=== PATIENT | female | born 1995 | race Caucasian/White ===

== ENCOUNTER 2019-10-19 13:57 | Emergency (ER) | payer MEDICAID ==
[2019-10-19 15:23] LABS: Bilirubin Negative (Negative); Blood, Urine 2+ (Negative); Clarity Clear (Clear); Glucose, Urine (Dipstick) Normal (Negative); Leukocyte Negative Leu/uL (Negative); Nitrite Negative (Negative); Protein, Urine (Dipstick) Negative (Neg-Trace); RBC/HPF 21-50 HPF (0-3); Squamous Epithelial None Seen HPF (0-3); Urobilinogen Normal mg/dL (Less than 2); WBC/HPF 0-3 HPF (0-3)
[2019-10-19 15:24] LABS: Bacteria/HPF 1+ HPF (None Seen)
--- NOTE | 2019-10-19 16:19 | ULT ---
PELVIC ULTRASOUND: 10/19/19 Transabdominal and endovaginal ultrasound of the pelvis performed. INDICATIONS: Vaginal bleeding. . FINDINGS: A gestational sac is seen in the endometrial cavity. No evidence of yolk sac. No evidence of po le. A hypoechoic area adjacent to this apparent gestational sac suggests a subchorionic hemorrhage. There is a left ovarian cyst measuring 1.5 to 2.0 cm, possible corpus luteum. The right ovary is unre markable. Both ovaries demonstrate blood flow with color Doppler and spectral analysis. IMPRESSION: Mildly prominent endometrium. There is evidence of a gestational sac in endometrial cavity. The gesta tional sac size would suggest a six week, 2 day gestational age; however, no pole or yolk sac i s identified possibly representing a blighted ovum. There is evidence of subchorionic hemorrhage. Sug gest continued close follow-up with serial HCG levels. POS: OFF
== END 2019-10-19 17:45 | disposition home or self-care (01) ==
LOC: ERS 13:57
DX: O20.0 Threatened abortion (principal); Z3A.01 Less than 8 weeks gestation of pregnancy
CPT/HCPCS: 36415; 76856; 81003; 81015; 84702; 90384; 96372

== ENCOUNTER 2020-04-23 22:48 | Emergency (ER) | payer MEDICAID, OTHER ==
[2020-04-23 23:33] LABS: Pregnancy Test - Urine (BHCG) POSITIVE (Negative); Pregu Control Background? CLEAR/WHITE (CLR/WHITE); Pregu Control Bar Appear? YES (CONTROL BAR)
[2020-04-23 23:34] LABS: #Basophils 0.1 thou/uL (0.0-0.2); #Eosinphils 0.1 thou/uL (0.0-0.7); #Lymphocytes 2.9 thou/uL (1.20-3.40); %Basophils 0.4 % (0.0-1.0); %Eosinophils 0.9 % (0.0-10.0); %Lymphocytes 17.9 % (21.0-51.0); %Neutrophils 74.9 % (42.0-75.0); Hemoglobin 12.6 g/dL (12.0-16.0); Mean Corpuscular HGB CONC 33.4 g/dL (32.0-36.0); Mean Corpuscular Hemoglobin 29.7 pg (27.0-31.0); Mean Corpuscular Volume 88.9 fL (78.0-98.0); Mean Platelet Volume 8.7 fL (7.4-10.4); Platelet Count 241 thou/uL (130-400); RBC Distribution Width 12.6 % (11.5-14.5); Red Blood Cell (RBC) Count 4.24 mill/uL (4.20-5.40)
[2020-04-23 23:41] LABS: Bilirubin Negative (Negative); Blood, Urine 2+ (Negative); Clarity Turbid (Clear); Glucose, Urine (Dipstick) Normal (Negative); Leukocyte Negative Leu/uL (Negative); Nitrite Negative (Negative); Protein, Urine (Dipstick) Negative (Neg-Trace); Squamous Epithelial 0-3 HPF (0-3); Urobilinogen Normal mg/dL (Less than 2); WBC/HPF 0-3 HPF (0-3)
[2020-04-23 23:44] LABS: Bacteria/HPF 1+ HPF (None Seen); Specific Gravity 1.013 (1.002-1.036)
[2020-04-23 23:49] LABS: BHCG - Serum POSITIVE (NEGATIVE); Pregs Control Background? CLEAR/WHITE (CLR/WHITE); Pregs Control Bar Appear? YES (CONTROL BAR)
[2020-04-23 23:57] LABS: ALT (SGPT) 18 U/L (8-55); AST (SGOT) 19 U/L (5-34); Alkaline Phosphatase 91 U/L (40-110); Anion Gap 9 mmol/L (10-20); BUN (Urea Nitrogen) 11 mg/dL (7.0-18.7); Bilirubin, Total 0.3 mg/dL (0.2-1.2); Calc. Creatinine Clearance 0 mL/min (70-130); Calcium 9.1 mg/dL (7.8-10.44); Carbon Dioxide 28 mmol/L (22-29); Chloride 103 mmol/L (98-107); Estimated GFR-MDRD Greater than 90; Glucose 95 mg/dL (70-105); Potassium 3.4 mmol/L (3.5-5.1); Sodium 137 mmol/L (136-145)
--- NOTE | 2020-04-24 08:55 | ULT ---
PRELIMINARY REPORT/[facility]/EMERGENCY AFTER HOURS PROCEDURE EXAM: US Obstetrical, Complete <14 weeks CLINICAL HISTORY: Pelvic cramping pain, vaginal bleeding TECHNIQUE: Transvaginal and transabdominal imaging of the maternal pelvis and a <14 week gestation with image do cumentation. COMPARISON: None provided. FINDINGS: GESTATION: A CRL of 0.5 cm corresponds to 9 weeks 2 days with a heartbeat of 163 bpm. A 2.6 x 1.2 x 2.4 c m yisel-gestational hemorrhage is noted UTERUS: Unremarkable. No myometrial mass. Measures 8.3 x 5.4 x 6.2 cm CERVIX: Closed. Unremarkable. OVARIES: No mass. The RIGHT side measures 2.3 x 1.6 cm and the LEFT side measures 4.0 x 2.1 x 2.2 cm demonst rating a 1.8 x 1.1 x 1.4 cm complex cyst FREE FLUID: No free fluid. IMPRESSION: Single viable intrauterine . Yisel-gestational hemorrhage. ELECTRONICALLY SIGNED BY: Emir Mckenzie MD Apr 24, 2020 1:03:21 AM CDT This report is intended for review by the ordering physician only, in accordance of law. If you recei ve this report in error, please call [facility] at [phone]. FINAL REPORT PELVIC ULTRASOUND: FINDINGS: Viable intrauterine is noted on preliminary report. There is evidence of a subchorionic he morrhage. I am in agreement with the preliminary report. POS: AGW
== END 2020-04-24 01:50 | disposition home or self-care (01) ==
LOC: ERS 22:48
DX: O20.8 Other hemorrhage in early pregnancy (principal); O23.41 Unspecified infection of urinary tract in pregnancy, first trimester; Z3A.01 Less than 8 weeks gestation of pregnancy
CPT/HCPCS: 36415; 76856; 80053; 81003; 81015; 81025; 84702; 84703; 85025; 86900; 86901

== ENCOUNTER 2020-09-01 13:07 | Day surgery (SDC) | payer OTHER ==
[2020-09-01 13:49] VITALS: BMI 29.7
[2020-09-01] MEDS ORDERED: hydrALAZINE 20 MG/ML VIAL SLOW IVP PRN (14:35)
--- NOTE | 2020-09-01 16:35 | ULT ---
EXAM: OB ultrasound Limited COMPARISON: None HISTORY: 26 week intrauterine gestation. Patient complaining of pelvic pressure and spotting. TECHNIQUE: Multiplanar grayscale and color Doppler transabdominal sonographic images are obtained. FINDINGS: There is a single intrauterine gestation in breech presentation. Cardiac Doppler demonstrat es heart tones with a heart rate of 136 beats per minute. The placenta is located posteriorly and is low lying with the leading edge of the placenta approximately 1 cm proximal to the internal cervical os. No retroplacental hemorrhage is seen. There is a normal amount of amniotic fluid with an amniotic fluid index of 16.9 centimeters. The cervical length based on transabdominal i maging measures 4.5 centimeters. biometry measurements: BPD 6.77 cm -- 27 weeks 2 days HC 24.91 cm -- 27 weeks AC 21.46 cm -- 26 weeks FL 4.79 cm -- 26 week The estimated gestational age by ultrasound is 26 weeks 4 days with an MANDA on12/04/2020. Gestational a ge by the last menstrual period is 26 weeks. The estimated weight by ultrasound is 900 g (2 pounds). This represents 45 percentile for weight. This examination was not performed for evaluation of the anatomical structures. Adnexal structures were not imaged. IMPRESSION: 1. Low-lying placenta with the leading edge of the placenta approximately 1 cm from the internal cerv ical os. 2. Single intrauterine gestation in breech presentation with heart tones documented. Estimated gestational age by ultrasound is 26 weeks 4 days with MANDA on 12/04/2020. 3. Estimated weight is 900 g (2 pounds). 4. Amniotic fluid index is 16.9 centimeters.
--- NOTE | 2020-09-02 05:02 | SS ---
DATE OF ADMISSION: 09/01/2020 DATE OF DISCHARGE: 09/01/2020 Labor and Delivery Triage Note. REGULAR PHYSICIAN: Jam Hester MD EVALUATING PHYSICIAN: Nicholas Gama MD. CHIEF COMPLAINT: Pelvic pressure. HISTORY OF PRESENT ILLNESS: Ms. Harris is a 24-year-old white G2, P0, AB1 with an estimated date of confinement of 12/08/2020, who presents complaining of pelvic discomfort and pelvic pressure over the last 3 days. She denies change in bowel or bladder habits. She denies ruptured membranes, but does report occasional white spotting. She reports having had intercourse 48 hours ago. Her care has been with Dr. Hester and has been complicated by 1st trimester bleeding. PAST OBSTETRICAL HISTORY: Includes one blighted ovum, which was treated with D and C. PAST MEDICAL HISTORY: None. PAST SURGICAL HISTORY: D and C as above. CURRENT MEDICATIONS: vitamins. ALLERGIES: NO KNOWN ALLERGIES. SOCIAL HISTORY: Denies tobacco, alcohol, or drug use. FAMILY HISTORY: Unremarkable. REVIEW OF SYSTEMS: Denies nausea, vomiting, fever, chills, ruptured membranes, or urinary symptoms. PHYSICAL EXAMINATION: VITAL SIGNS: Blood pressure is 112/61, pulse is 82. GENERAL: She is pleasant, and in no acute distress. ABDOMEN: Soft, nontender, and gravid. There is no guarding or rebound. heart rate tracing is stable. No decelerations are seen. No uterine contractions are noted. Ultrasound shows a breech coe weight approximately 2 pounds. ELIAS 16.9 with a posterior placenta without previa. A cervical length of 4.5 cm is noted. ASSESSMENT: 1. 26-week intrauterine . 2. No evidence of labor. PLAN: The patient was given labor precautions, and told to rest at home over the next 24 hours. She voiced understanding of her discharge instructions, and will follow up with Dr. Hester next week. Job ID: [id number]
[2020-09-02] MEDS ORDERED: FLU VACC QS2020-21(6MOS UP)/PF 60 MCG/0.5 ML SYRINGE IM ONE (09:00)
== END 2020-09-01 16:00 | disposition home or self-care (01) ==
LOC: L&D/OP 13:07
PROVIDERS: ATTEND Obstetrics & Gynecology
DX: O99.891 Other specified diseases and conditions complicating pregnancy (principal); R10.2 Pelvic and perineal pain; O26.852 Spotting complicating pregnancy, second trimester; O09.292 Supervision of pregnancy with other poor reproductive or obstetric history, second trimester; Z3A.26 26 weeks gestation of pregnancy
CPT/HCPCS: 76815; 99282

== ENCOUNTER 2020-09-26 17:01 | Day surgery (SDC) | payer OTHER ==
[2020-09-26 17:56] LABS: Amnisure Internal Control QC ACCEPTABLE (ACCEPTABLE); Amnisure Test No Membranes Rupture (No Rupture)
[2020-09-26 18:00] VITALS: BP 119/72; TEMP 98.1; BMI 30.2
[2020-09-26] MEDS ORDERED: hydrALAZINE 20 MG/ML VIAL SLOW IVP PRN (18:10)
--- NOTE | 2020-09-26 18:11 | PDOC.LDHP ---
Labor and Delivery H&P Chief complaint: loss of fluid HPI: Patient is a 25 yo female at 29.4 wga who presents with complaint of loss of fluid that occurred approximately 2 hours ago. She states she was walking at work and felt sudden lower abdominal pressure, then a "pop" then felt a lot of fluid in her underwear. She was wearing a panty-liner and says that it was soaked and so was her underwear. Denies any vaginal bleeding or discharge. Denies dysuria, burning, itching, abdominal pain, back pain, fever/chills, nausea, vomiting. Is still feeling baby move. Patient is followed by Dr. Hester, last appt with him was on 09/23/2020. Had ultrasound at that time and was told everything looked normal and baby was head down. She had a "blood clot" outside her gestational sac early in but this has since resolved. she did fail her 1 hour glucose tolerance test and is supposed to have her 3 hr gtt completed next week. Current gestational age (weeks): 29 (29.4) Due date: 12/10/20 Grav: 2 Para: 0 OB History Details: 1st miscarriage at 8 wga, required D&C--performed in 2019 Current complications: none Past Medical History: no major issues Current medications: pre- vitamins Previous surgical history: dilation and curettage (2019) Allergies/Adverse Reactions: Allergies Allergy/AdvReac Type Severity Reaction Status Date / Time No Known Allergies Allergy Verified 09/26/20 17:47 Social history: none - Physical Exam Vital signs reviewed and normal: yes General: resting Lungs: nonlabored breathing Abdomen: gravid Extremeties: no edema FHT: category 1 (FHR 140s) [place] contractions every: none seen - Vaginal Exam cm dilated: 0 (sterile spec exam with closed cervix & no pooling of fluid) - OB Labs Blood type: unknown RH: unknown Antibody Screen: unknown 1 hour GCT: positive (patient reports she "failed", number unknown) GBS: unknown - Plan -: Patient is a 25 yo female at 29.4 wga who presents with presumed LOF Third Trimester , Rule Out PPROM -sterile speculum exam with no signs of pooling of fluid, cervix closed -Amnisure negative Dispo: Stable. Ruled out rupture of membranes. Instructed patient to keep follow up as scheduled with Dr. Hester. Discharged to home in stable condition.
--- NOTE | 2020-09-26 18:26 | HP ---
TIME OF EVALUATION: Roughly 1800 hours. 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 In brief, I have seen this patient at bedside and I have reviewed with her diagnostic testing and the patient agrees with plan of care. This patient of Dr. Hester. The patient was first evaluated by Dr. Valentine Jones, who is our resident on- call. CHIEF COMPLAINT: Possible leakage of fluid earlier this afternoon. HISTORY OF PRESENT ILLNESS: This is a 25-year-old, G2, P0, with a previous 1st trimester miscarriage with D and C, who has a due date now around 12/10, putting her at 29 weeks and 4 days. She states that she was at work and had some leakage of fluid, but denied vaginal bleeding or contractions, and she has no contractions or pain now. She has good movement. She denies recent trauma or other issues. She does have a history of not passing her one-hour glucose tolerance test and her three-hour is still pending. PAST HISTORY: As otherwise stated by Dr. Jones's H and P. PHYSICAL EXAMINATION: VITAL SIGNS: Stable and she is afebrile. ASSESSMENT AND PLAN: I have evaluated the patient at bedside and I find her stable for discharge. Before making this plan of discharge, she did have a sterile speculum examination by Dr. Jones, which was completely normal and did not suspect ruptured membranes. We also performed an AmniSure examination and AmniSure is negative. I discussed with the patient that having 2 tests (sterile speculum exam and AmniSure), both negative, makes it very unlikely that she is ruptured at this time. I did recommend that she follow up with her provider for routine care. DIAGNOSES: 1. A 29-week . 2. heart tones present and variability noted on tracing. 3. Sterile speculum examination negative. 4. AmniSure negative. Job ID: [id number] MTDD
[2020-09-27] MEDS ORDERED: FLU VACC QS2020-21(6MOS UP)/PF 60 MCG/0.5 ML SYRINGE IM ONE (09:00)
== END 2020-09-26 18:25 | disposition home or self-care (01) ==
LOC: L&D/OP 17:01
PROVIDERS: ATTEND Obstetrics & Gynecology
DX: O99.891 Other specified diseases and conditions complicating pregnancy (principal); N89.8 Other specified noninflammatory disorders of vagina; Z3A.29 29 weeks gestation of pregnancy
CPT/HCPCS: 84112; 99284

== ENCOUNTER 2020-11-10 17:50 | Day surgery (SDC) | payer OTHER ==
[2020-11-10 18:36] VITALS: BP 128/68; TEMP 98.7; BMI 32.5
[2020-11-10] MEDS ORDERED: hydrALAZINE 20 MG/ML VIAL SLOW IVP PRN (18:50)
[2020-11-10 19:50] LABS: Bacteria/HPF None Seen HPF (None Seen); Bilirubin Negative (Negative); Blood, Urine Negative (Negative); Clarity Clear (Clear); Glucose, Urine (Dipstick) Normal (Negative); Ketone, Urine Negative (Negative); Leukocyte Negative Leu/uL (Negative); Nitrite Negative (Negative); Protein, Urine (Dipstick) Negative (Neg-Trace); RBC/HPF 0-3 HPF (0-3); Squamous Epithelial 0-3 HPF (0-3); Urobilinogen Normal mg/dL (Less than 2); WBC/HPF 0-3 HPF (0-3)
--- NOTE | 2020-11-11 10:11 | SS ---
DATE OF ADMISSION: 11/10/2020 DATE OF DISCHARGE: 11/10/2020 REGULAR PHYSICIAN: Jam Hester MD EVALUATING PHYSICIAN: Nicholas Gama MD CHIEF COMPLAINT: Back pain. HISTORY OF PRESENT ILLNESS: Ms. Harris is a 25-year-old white G2, P0, AB1 with an estimated date of confinement of 12/08/2020, who presents complaining of back pain at work. She is uncertain whether she thinks these are contractions or not. She denies associated ruptured membranes or vaginal bleeding. She states she was sent here from work for evaluation of these complaints. Her care has been with Dr. Hester without complications. PAST MEDICAL HISTORY: None. PAST SURGICAL HISTORY: D and C for blighted ovum. CURRENT MEDICATIONS: 1. vitamins. 2. Nexium p.r.n. ALLERGIES: NO KNOWN ALLERGIES. SOCIAL HISTORY: Denies tobacco, alcohol, or drug use. FAMILY HISTORY: Unremarkable. REVIEW OF SYSTEMS: Denies nausea, vomiting, fever, chills, ruptured membranes, vaginal bleeding. PHYSICAL EXAMINATION: VITAL SIGNS: In triage, her vital signs are stable. She is afebrile. GENERAL: She is pleasant, in no distress. ABDOMEN: Soft, nontender, and gravid. heart rate tracing is reassuring with spontaneous accelerations. No decelerations are seen. No sustained uterine contractions are noted. PELVIC: Initially is 1 cm dilated, 50% effaced with the vertex -2 and posterior. The patient is hydrated and her exam is repeated over an hour later and there is no cervical change seen. LAB: UA negative. ASSESSMENT: 1. A 36 and 0/7th-week intrauterine . 2. Back pain. 3. No evidence of active labor at this time. PLAN: The patient will be dismissed home with labor precautions. Her labor precautions were reviewed and she will follow up for her next scheduled appointment with Dr. Hester. Job ID: [id number] [facility]
== END 2020-11-10 20:14 | disposition home health service (06) ==
LOC: L&D/OP 17:50
PROVIDERS: ATTEND Obstetrics & Gynecology
DX: O99.891 Other specified diseases and conditions complicating pregnancy (principal); M54.9 Dorsalgia, unspecified; O09.293 Supervision of pregnancy with other poor reproductive or obstetric history, third trimester; Z3A.36 36 weeks gestation of pregnancy
CPT/HCPCS: 81003; 99283

== ENCOUNTER 2020-11-26 13:54 | Day surgery (SDC) | payer OTHER ==
[2020-11-26 14:31] VITALS: BMI 32.2
[2020-11-26] MEDS ORDERED: hydrALAZINE 20 MG/ML VIAL SLOW IVP PRN (14:42)
--- NOTE | 2020-11-26 15:08 | PDOC.BPN ---
- Brief Progress Note H&P notes: Patient was seen earlier at Dr Hester's office. Her performed vag exam and called her .5cm. Sent for ROM check here. FHTs there were 140s by patient account. Here around 110-120s with accels to 130s. Pulse ox noted different maternal pulse. Sterile Spec Exam by me: No gross evidence ROM. SSE with no pooling. Valsalva negative. Thick white curd like vag dsch abundant in vagina. Suspect vag candidiasis not ROM pending I discussed these findings with her. Diflucan ordered at 150mg po X1.
[2020-11-26 15:10] LABS: Amnisure Test No Membranes Rupture (No Rupture)
[2020-11-26 15:11] LABS: Amnisure Internal Control QC ACCEPTABLE (ACCEPTABLE)
[2020-11-26] MEDS ORDERED: Fluconazole 100 MG TAB PO SCH (15:15)
--- NOTE | 2020-11-26 15:17 | PDOC.BPN ---
- Brief Progress Note is negative
--- NOTE | 2020-11-26 15:28 | HP ---
TIME OF EVALUATION: Roughly is 1430, now 1446. LOCATION: Triage B. Patient of Dr. Hester. CHIEF COMPLAINT: Possible leakage of fluid this morning. HISTORY OF PRESENT ILLNESS: This is a 25-year-old G2, P0 with possible leakage of fluid throughout the night. She says that she woke up this morning with "wet thighs" and a small wet spot on the bed, but she declines any large gush of fluid. She has good movement and denies any vaginal bleeding. Patient sent by Dr Hester who saw her earlier today in clinic. He examined her there and called her "1/2 cm". FHTs there by her account were 130-140s. She has no headache, visual changes or other complications. She is 30 weeks and 2 days. Her EDC is December 08. She has a history of blighted ovum (miscarriage) in the past. REVIEW OF SYSTEMS: GENERAL: No sick contacts. No fevers. No chills. PULMONARY: No shortness of breath. CARDIOVASCULAR: No chest pain. LOWER EXTREMITIES: No unusual swelling or pain. PAST MEDICAL HISTORY: Significant only for gastroesophageal reflux disease. ALLERGIES: NONE. PAST SURGICAL HISTORY: None. PAST OBSTETRICAL HISTORY: Significant for blighted ovum. SOCIAL HISTORY: Negative for alcohol, tobacco and drug use. CURRENT MEDICATIONS: Include her vitamins only. PHYSICAL EXAMINATION: VITAL SIGNS: Blood pressure is 115/73, pulse is 109, O2 sat is 100%, respirations 18, temperature is 98.4. GENERAL: She is in no acute distress. ABDOMEN: Soft, nontender. Appears size compatible with dates. PELVIC: Currently deferred as I am about to do a sterile speculum exam. EXTERNAL MONITOR: monitor has been reviewed by me. The heart tracing has somewhat of a low baseline of around 110 to 120, but it does look like there is moderate variability. We do have the pulse ox on at the same time, which shows that it is distinct from the maternal pulse. INTERVENTIONS ORDERED: I have ordered a sterile speculum exam, which I am about to do and an AmniSure. ASSESSMENT: A 25-year-old G2, P0 at 38 weeks and 2 days, with GBS positive with possible premature rupture of membranes. PLAN: 1. Continue monitoring for the low baseline. Although it is low baseline, I do not see any pathological decelerations. 2. Sterile spec examination. 3. Await AmniSure. Job ID: [id number] MTDD
--- NOTE | 2020-11-26 16:02 | PRG ---
DATE OF SERVICE: This is a quick note for the medical scientific officer on patient Sherri Harris, whose J# is [id number]. I may have punched in my physician ID incorrectly, I cannot remember, but this is to confirm that the patient Sherri Harris, J# [id number] goes to me, Melecio Velazquez, I just dictated her history and physical, because I am not sure if I put in my physician ID correctly. Again, Sherri Harris's history and physical dictated by me should go under my physician ID code which is [id number]. Job ID: [id number]
== END 2020-11-26 15:48 | disposition home health service (06) ==
LOC: L&D/OP 13:54
PROVIDERS: ATTEND Obstetrics & Gynecology
DX: O99.891 Other specified diseases and conditions complicating pregnancy (principal); N89.8 Other specified noninflammatory disorders of vagina; O99.613 Diseases of the digestive system complicating pregnancy, third trimester; K21.9 Gastro-esophageal reflux disease without esophagitis; O99.820 Streptococcus B carrier state complicating pregnancy; Z3A.38 38 weeks gestation of pregnancy; Z79.899 Other long term (current) drug therapy
CPT/HCPCS: 84112

== ENCOUNTER 2020-11-27 08:16 | Outpatient (CLI) | payer OTHER ==
[2020-11-27 21:23] LABS: SARS-CoV-2 MS2 Positive; SARS-CoV-2 N Gene Negative; SARS-CoV-2 S Gene Negative; SARS-CoV-2 by NAA Not Detected (NotDetected); SARS-CoV-2 orf1ab Negative
== END 2020-11-27 08:17 | disposition home or self-care (01) ==
LOC: LABBT 08:16
PROVIDERS: ATTEND Obstetrics & Gynecology
DX: Z01.812 Encounter for preprocedural laboratory examination (principal); Z20.822 Contact with and (suspected) exposure to COVID-19
CPT/HCPCS: 87635; U0003

== ENCOUNTER 2020-12-01 18:55 | Inpatient (IN) | payer OTHER, SELFPAY ==
[~2020-12-01 18:55] MED LIST: Bupivacaine HCl 0.25%/Epi 0.0005/PF 10 ML VIAL FS ONE; Lidocaine 2% PF 5 ML VIAL ONE; ePHEDrine 50 MG/ML VIAL ONE
[2020-12-01] MEDS ORDERED: Acetaminophen 500 MG TAB PO PRN (19:00)
[2020-12-01] MEDS ORDERED: HYDROcodone/Acetaminophen 5/325 mg Tablet PO PRN ×2 (19:00)
[2020-12-01] MEDS ORDERED: Lidocaine 1% (PF) 30 ML VIAL SC PRN (19:00)
[2020-12-01] MEDS ORDERED: hydrALAZINE 20 MG/ML VIAL SLOW IVP PRN (19:00)
[2020-12-01] MEDS ORDERED: Penicillin G Potassium 5 MILL.UNITS in Sodium Chloride 0.9% 100 ML IVPB SCH (19:00)
[2020-12-01] MEDS ORDERED: Ondansetron PF 4 MG/2 ML Vial IVP PRN (19:00)
[2020-12-01] MEDS ORDERED: Misoprostol 200 MCG TAB PR PRN (19:00)
[2020-12-01] MEDS ORDERED: NS / Oxytocin 40 units/1000ml 1,000 ML IV PRN (19:00)
[2020-12-01] MEDS ORDERED: Carboprost 250 MCG/ML AMP IM PRN (19:00)
[2020-12-01] MEDS ORDERED: Promethazine HCl 25 MG/ML VIAL IM PRN (19:00)
[2020-12-01] MEDS ORDERED: Methylergonovine 0.2 MG/ML VIAL IM PRN (19:00)
[2020-12-01] MEDS ORDERED: Zolpidem Tartrate 5 MG TAB PO PRN (19:00)
[2020-12-01] MEDS ORDERED: Diphenoxylate HCl/Atropine Tablet PO PRN ×2 (19:00)
[2020-12-01] MEDS ORDERED: Ibuprofen 800 MG TAB PO PRN (19:00)
--- NOTE | 2020-12-01 19:11 | PDOC.LDHP ---
Labor and Delivery H&P HPI: 25 y/o at 39 weeks presents for elective induction of labor. GBS Positive. Current gestational age (weeks): 39 Due date: 12/08/20 Grav: 2 Para: 0 Current complications: none Abnormal US findings: No Current medications: pre- vitamins Allergies/Adverse Reactions: Allergies Allergy/AdvReac Type Severity Reaction Status Date / Time No Known Allergies Allergy Verified 11/26/20 14:24 Social history: none - Physical Exam Vital signs reviewed and normal: yes General: NAD, resting Heart: RRR Lungs: CTAB Abdomen: gravid Extremeties: no edema FHT: category 1 - Assessment L&D Assessment: elective induction at term - Plan Plan: admit to L&D, cervical ripening
[2020-12-01] MEDS ORDERED: NS w/ Oxytocin 30 units 500 ML IVPB SCH ×2 (19:15→19:17)
[2020-12-01 19:42] VITALS: BMI 32.2
[2020-12-01] MEDS: Lactated Ringer's 1,000 ML IV SCH (20:07)
[2020-12-01] MEDS: Misoprostol 100 MCG TAB VAG SCH (20:08)
[2020-12-01 20:18] LABS: Hemoglobin 10.6 g/dL (12.0-16.0); Mean Corpuscular Hemoglobin 26.5 pg (27.0-31.0); Mean Corpuscular Volume 80.2 fL (78.0-98.0); Mean Platelet Volume 9.5 fL (7.4-10.4); Platelet Count 275 thou/uL (130-400); RBC Distribution Width 15.8 % (11.5-14.5); White Blood Cell (WBC) Count 14.8 thou/uL (4.8-10.8)
[2020-12-01 20:59] LABS: Syphilis Antibody Nonreactive (Nonreactive); Syphilis Antibody Index 0.05 S/CO (<1.00 Non-Reactive)
[2020-12-01 22:39] LABS: HBSAg Index 0.37 S/CO (0-0.99); Hep B Surf Ag Non-Reactive S/CO (NonReactive)
[2020-12-01] MEDS: Penicillin G 2.5 MILL.units 2.5 MILL.UNITS in Premix Bag 1 BAG IVPB SCH ×2 (23:20→23:21)
[2020-12-02] MEDS: Misoprostol 100 MCG TAB VAG SCH ×2 (00:14→09:14)
[2020-12-02] MEDS: Butorphanol Tartrate 1 MG/ML VIAL SLOW IVP PRN ×2 (05:28→09:13)
[2020-12-02] MEDS ORDERED: Fentanyl 4 mcg/Bup 0.1% Cadd 100 ML ONE ×2 (10:56→17:56)
[2020-12-02] MEDS ORDERED: Acetaminophen 325 MG TAB PO PRN (11:28)
[2020-12-02] MEDS ORDERED: Naloxone HCl 0.4 mg/ml Vial IVP PRN ×4 (11:28→21:14)
[2020-12-02] MEDS ORDERED: ePHEDrine 50 MG/ML VIAL SLOW IVP PRN (11:28)
[2020-12-02] MEDS ORDERED: Promethazine HCl 25 MG/ML VIAL IM PRN ×3 (11:28→22:24)
[2020-12-02] MEDS ORDERED: Ondansetron PF 4 MG/2 ML Vial IVP PRN ×3 (11:28→22:24)
[2020-12-02] MEDS ORDERED: diphenhydrAMINE 50 MG/ML VIAL IVP PRN ×3 (11:28→22:24)
[2020-12-02] MEDS ORDERED: Lactated Ringer's 500 ML IV PRN (11:28)
[2020-12-02] MEDS ORDERED: Communication Order-Pharmacy FS PRN (11:30)
[2020-12-02] MEDS ORDERED: Fentanyl 4 mcg/Bupivacaine 0.1% Cassette 100 ML EPIDURAL SCH (11:30)
[2020-12-02] MEDS: Lactated Ringer's 1,000 ML IV SCH (14:40)
[2020-12-02] MEDS ORDERED: Terbutaline Sulfate 1 MG/ML VIAL ONE (14:58)
[2020-12-02] MEDS: Penicillin G 2.5 MILL.units 2.5 MILL.UNITS in Premix Bag 1 BAG IVPB SCH (18:08)
[2020-12-02] MEDS ORDERED: Azithromycin 500 MG VIAL ONE (20:11)
[2020-12-02] MEDS ORDERED: Lidocaine 2% 10 ML INJ ONE (20:36)
[2020-12-02] MEDS ORDERED: Oxytocin 10 UNITS/ML VIAL ONE (20:37)
[2020-12-02] MEDS ORDERED: Fentanyl 100 MCG/2 ML VIAL ONE ×3 (20:56→21:32)
[2020-12-02] MEDS ORDERED: Morphine PF 10 MG/10 ML VIAL ONE (20:57)
[2020-12-02] MEDS ORDERED: Ondansetron HCl/PF 4 MG/2 ML Vial IVP PRN (21:14)
[2020-12-02] MEDS ORDERED: Ketorolac Tromethamine 30 MG/ML VIAL IVP PRN (21:14)
[2020-12-02] MEDS ORDERED: Meperidine HCl/PF 25 MG/ML VIAL SLOW IVP PRN (21:14)
[2020-12-02] MEDS ORDERED: L&D-Morphine 4 MG/ML VIAL SLOW IVP PRN (21:14)
[2020-12-02] MEDS ORDERED: Promethazine HCl 25 MG SUPP PR PRN (21:14)
[2020-12-02] MEDS ORDERED: Naloxone HCl 0.4 mg/ml Vial IV PRN ×2 (21:14→22:24)
[2020-12-02] MEDS ORDERED: HYDROmorphone 2 MG/ML VIAL SLOW IVP PRN (21:14)
[2020-12-02] MEDS ORDERED: Communication Order-Pharmacy FS SCH ×2 (21:15→22:30)
[2020-12-02] MEDS ORDERED: Ketorolac Tromethamine 30 MG/ML VIAL IVP SCH (21:15)
[2020-12-02] MEDS ORDERED: Ketorolac Tromethamine 30 MG/ML VIAL ONE (21:16)
[2020-12-02] MEDS ORDERED: Ondansetron PF 4 MG/2 ML Vial ONE ×2 (21:16→23:02)
[2020-12-02] MEDS ORDERED: Dexamethasone 4 mg/ml Vial ONE (21:16)
[2020-12-02] MEDS ORDERED: Ketamine 50 MG/ML (10ML VIAL) ONE (21:41)
[2020-12-02] MEDS ORDERED: HYDROmorphone 10 mg/100 ml CADD IVPB PRN (22:24)
[2020-12-02] MEDS ORDERED: diphenhydrAMINE 50 MG/ML VIAL IM PRN (22:24)
[2020-12-02] MEDS ORDERED: Zolpidem Tartrate 5 MG TAB PO PRN (22:24)
[2020-12-02] MEDS ORDERED: diphenhydrAMINE 25 MG CAP PO PRN (22:24)
[2020-12-03] MEDS ORDERED: Bisacodyl 10 MG SUPP PR PRN (00:01)
[2020-12-03] MEDS ORDERED: Zolpidem Tartrate 5 MG TAB PO PRN (00:01)
[2020-12-03] MEDS ORDERED: hydrALAZINE 20 MG/ML VIAL SLOW IVP PRN (00:01)
[2020-12-03] MEDS ORDERED: Methylergonovine 0.2 MG/ML VIAL IM PRN (00:01)
[2020-12-03] MEDS ORDERED: Ondansetron PF 4 MG/2 ML Vial IVP PRN (00:01)
[2020-12-03] MEDS ORDERED: NS / Oxytocin 40 units/1000ml 1,000 ML IV SCH (00:01)
[2020-12-03] MEDS ORDERED: Misoprostol 200 MCG TAB PR PRN (00:01)
[2020-12-03] MEDS ORDERED: Lanolin Ointment 7 GM TUBE TOP PRN (00:01)
[2020-12-03] MEDS ORDERED: diphenhydrAMINE 25 MG CAP PO PRN (00:01)
[2020-12-03] MEDS ORDERED: Promethazine HCl 25 MG/ML VIAL IM PRN (00:01)
[2020-12-03] MEDS ORDERED: NS w/ Oxytocin 30 units 500 ML IV SCH (00:15)
[2020-12-03] MEDS: Misoprostol 100 MCG TAB VAG SCH ×3 (01:37→01:39)
[2020-12-03] MEDS: Lactated Ringer's 1,000 ML IV SCH (01:37)
[2020-12-03] MEDS: Penicillin G 2.5 MILL.units 2.5 MILL.UNITS in Premix Bag 1 BAG IVPB SCH ×2 (01:40→01:41)
[2020-12-03 07:06] LABS: Hemoglobin 8.5 g/dL (12.0-16.0); Mean Corpuscular HGB CONC 32.9 g/dL (32.0-36.0); Mean Corpuscular Hemoglobin 26.7 pg (27.0-31.0); Mean Corpuscular Volume 81.3 fL (78.0-98.0); Mean Platelet Volume 9.4 fL (7.4-10.4); Platelet Count 231 thou/uL (130-400); RBC Distribution Width 15.9 % (11.5-14.5); Red Blood Cell (RBC) Count 3.18 mill/uL (4.20-5.40); White Blood Cell (WBC) Count 24.6 thou/uL (4.8-10.8)
[2020-12-03] MEDS: Prenatal Vitamin 1 TAB PO SCH (08:59)
[2020-12-03] MEDS: Docusate Calcium (SURFAK) 240 MG CAP PO SCH ×2 (08:59→20:23)
[2020-12-03] MEDS ORDERED: Adacel (T-DAP) 0.5 ML SYRINGE IM ONE (09:00)
[2020-12-03] MEDS ORDERED: Measles/Mumps/Rubella 10 MCG/0.5 ML VIAL SC ONE (09:00)
[2020-12-03] MEDS ORDERED: Varicella virus, LIVE 0.5 ML VIAL SC ONE (09:00)
[2020-12-03] MEDS: HYDROcodone/Acetaminophen 5/325 mg Tablet PO PRN ×2 (14:26→19:23)
[2020-12-03] MEDS: Simethicone Chewable 80 MG TAB PO PRN (14:27)
--- NOTE | 2020-12-03 18:33 | PDOC.PP ---
Post Progress Note Post Day #: 1 PO intake tolerated: yes Flatus: yes Ambulation: yes Vital Signs (12 hours) Temp Pulse Resp BP Pulse Ox 12/03/20 17:12 98.8 F 107 H 12 110/56 L 97 12/03/20 11:44 98.7 F 96 20 108/54 L 12/03/20 08:18 99.0 F 96 20 112/54 L 97 Weight Weight 188 lb - Physical Examination General: NAD Cardiovascular: no m/r/g, RRR Respiratory: clear to auscultation bilaterally, non-labored breathing Abdominal: + bowel sounds, lochia, no distention Extremities: negative homans (B) Skin: CS incision dry & intact, no rash Neurological: no gross focal deficits Psychiatric: A&Ox3, normal affect Result Diagrams: 12/03/20 06:37 Additional Labs: Post Labs Hep Bs Antigen Non-Reactive S/CO (NonReactive) 12/01/20 19:58 Blood Type O POSITIVE 12/01/20 19:58
--- NOTE | 2020-12-03 18:59 | OP ---
DATE OF PROCEDURE: 12/02/2020 TIME OF SERVICE: At 2104 Central Standard Time. PREOPERATIVE DIAGNOSES: Intrauterine at 39 weeks and 1 day with induction of labor and then non-reassuring heart tones. POSTOPERATIVE DIAGNOSES: Intrauterine at 39 weeks and 1 day with induction of labor and then non-reassuring heart tones. PROCEDURE PERFORMED: Primary low transverse section. FINDINGS: Viable male weighing 3216 g or 7 pounds 1 ounce, Apgars 7 and 9. QUANTITATIVE BLOOD LOSS: 915 mL. COMPLICATIONS: None. DETAILS OF THE PROCEDURE: The patient was consented and taken back to the operating room where spinal anesthesia was found to be adequate. She was then prepped and draped in the normal sterile fashion. A timeout was performed by the entire operative team. The incision was then marked with a marking pen tested using sharp pickups. An incision was then made with a scalpel. The incision was carried through the adipose tissue down to the underlying rectus fascia using both sharp dissection as well as cautery. Once the fascia was identified, it was incised in the midline and then the fascial incision was carried through in both lateral directions using sharp as well as cautery dissection techniques. Next, the superior aspect of the rectus fascia was grasped with 2 Milly clamps, which was tented up and the rectus muscles were dissected off using blunt dissection as well as cautery dissection. Similarly, the inferior aspect of the fascial incision was grasped with 2 Milly clamps, tented up and the rectus muscles were dissected off bluntly as well as sharply. Next, the rectus muscles were in the midline and the peritoneum identified. The peritoneum was then carefully grasped with 2 hemostats and entered sharply. The peritoneal incision was extended superiorly and inferiorly and bladder blade was placed in the lower abdomen. At this point, the uterus was identified and the bladder flap was then developed using pickups with teeth as well as Metzenbaum scissors in both lateral directions. The bladder flap was then dissected downwards using the sanding line operator's finger as well as Metzenbaum scissors. The bladder blade was replaced. The lower uterine segment was then identified and entered sharply using a clean scalpel. The uterine incision was then dissected downwards until thin layer of muscle remained and this was entered bluntly using a hemostat to avoid any injury to the baby. The uterine incision was then stretched using two fingers in both lateral directions. An amniotomy was performed artificially using a hemostat and the baby was delivered using fundal pressure in a gentle fashion. Once out, the baby's mouth and nose were bulb suctioned, cord clamped and cut, and the baby was handed to waiting attendants. Next, the uterus was exteriorized, cleared of all clots and debris and the uterine incision was repaired with #1 Monocryl in a running locking fashion. A 2nd suture of the same type was used to obtain complete hemostasis at the uterine incision. The bladder flap was reapproximated using 3-0 Monocryl. Next, patient's left and right adnexa were inspected and appeared to be within normal limits. The posterior cul-de-sac was blotted dry and hemostasis assured. One more look at the uterine incision demonstrated hemostasis. Next, the uterus was replaced back within the abdomen. The peritoneum was reapproximated using 2-0 Monocryl without difficulty. The rectus muscles were then allowed to come back together and 0 chromic was used to aid in reapproximation of the muscle as necessary. The rectus fascia was then reapproximated in a running fashion using 0 Vicryl suture. The adipose tissue was then examined and appeared to be well approximated without any obvious separations. Finally, the skin was reapproximated with 3-0 Monocryl on a Osiel needle without difficulty and Dermabond adhesive was applied to the skin. Once the glue was dry, the drapes were removed and the patient was transferred to an ambulatory bed where she was taken to recovery awake and in stable condition. Sponge, lap, and needle counts were correct x3. Job ID: [id number]
[2020-12-03] MEDS ORDERED: Sodium Chloride 0.9% 10 ML ONE (20:17)
[2020-12-03] MEDS: CEFAZOLIN 2 GM in Premix Bag 1 BAG IVPB SCH (20:23)
[2020-12-03] MEDS: Ibuprofen 800 MG TAB PO SCH (21:43)
[2020-12-04] MEDS: CEFAZOLIN 2 GM in Premix Bag 1 BAG IVPB SCH (04:09)
[2020-12-04] MEDS ORDERED: Ibuprofen 800 MG TAB PO SCH (06:00)
[2020-12-04] MEDS: Ibuprofen 800 MG TAB PO SCH ×3 (06:08→21:09)
[2020-12-04] MEDS: Docusate Calcium (SURFAK) 240 MG CAP PO SCH ×2 (08:08→21:08)
[2020-12-04] MEDS: Prenatal Vitamin 1 TAB PO SCH (08:08)
[2020-12-04] MEDS: HYDROcodone/Acetaminophen 5/325 mg Tablet PO PRN (11:58)
[2020-12-04] MEDS: Simethicone Chewable 80 MG TAB PO PRN (17:39)
[2020-12-04 22:51] VITALS: TEMP 98.1
[2020-12-05] MEDS: Simethicone Chewable 80 MG TAB PO PRN ×2 (00:09→05:51)
[2020-12-05] MEDS: Ibuprofen 800 MG TAB PO SCH (05:52)
[2020-12-05] MEDS: HYDROcodone/Acetaminophen 5/325 mg Tablet PO PRN (05:52)
[2020-12-05 09:19] VITALS: BP 110/57
[2020-12-05] MEDS: Prenatal Vitamin 1 TAB PO SCH (09:20)
[2020-12-05] MEDS: Docusate Calcium (SURFAK) 240 MG CAP PO SCH (09:20)
== END 2020-12-05 13:00 | disposition home or self-care (01) | DRG 788 ==
LOC: L&D 18:55 → 3SW 12-03 01:41
PROVIDERS: ADMIT Obstetrics & Gynecology; ATTEND Obstetrics & Gynecology
PROC: 10D00Z1 Extraction of Products of Conception, Low, Open Approach (ICD-10-PCS; principal; 2020-12-02)
PROC: 10907ZC Drainage of Amniotic Fluid, Therapeutic from Products of Conception, Via Natural or Artificial Opening (ICD-10-PCS; 2020-12-02)
PROC: 3E0P7VZ Introduction of Hormone into Female Reproductive, Via Natural or Artificial Opening (ICD-10-PCS; 2020-12-02)
PROC: 3E033VJ Introduction of Other Hormone into Peripheral Vein, Percutaneous Approach (ICD-10-PCS; 2020-12-02)
DX: O99.824 Streptococcus B carrier state complicating childbirth (principal); Z20.822 Contact with and (suspected) exposure to COVID-19; O76 Abnormality in fetal heart rate and rhythm complicating labor and delivery; O61.0 Failed medical induction of labor; Z3A.39 39 weeks gestation of pregnancy; Z37.0 Single live birth
CPT/HCPCS: 36415; 85027; 86780; 86850; 86900; 86901; 87340; J0456; J0595; J0690; J1100; J1885; J2001; J2270; J2405; J2540; J2550; J2590; J3010; J3490

== ENCOUNTER 2020-12-07 11:31 | Emergency (ER) | payer OTHER ==
[2020-12-07] MEDS ORDERED: Ondansetron PF 4 MG/2 ML Vial ONE (12:52)
[2020-12-07 13:19] LABS: #Eosinphils 0.2 thou/uL (0.0-0.7); #Lymphocytes 1.9 thou/uL (1.20-3.40); #Monocytes 0.6 thou/uL (0.11-0.59); #Neutrophils 8.9 thou/uL (1.40-6.50); %Basophils 0.3 % (0.0-1.0); %Eosinophils 1.7 % (0.0-10.0); %Lymphocytes 16.5 % (21.0-51.0); %Monocytes 5.2 % (0.0-10.0); %Neutrophils 76.4 % (42.0-75.0); Mean Corpuscular HGB CONC 32.5 g/dL (32.0-36.0); Mean Corpuscular Hemoglobin 26.6 pg (27.0-31.0); Mean Corpuscular Volume 81.9 fL (78.0-98.0); Platelet Count 336 thou/uL (130-400); RBC Distribution Width 15.8 % (11.5-14.5); White Blood Cell (WBC) Count 11.7 thou/uL (4.8-10.8)
[2020-12-07 13:41] LABS: ALT (SGPT) 25 U/L (8-55); AST (SGOT) 23 U/L (5-34); Albumin 3.3 g/dL (3.5-5.0); Alkaline Phosphatase 142 U/L (40-110); Anion Gap 15 mmol/L (10-20); BUN (Urea Nitrogen) 8 mg/dL (7.0-18.7); Bilirubin, Total 0.4 mg/dL (0.2-1.2); Calc. Creatinine Clearance 0 mL/min (70-130); Calcium 8.6 mg/dL (7.8-10.44); Carbon Dioxide 24 mmol/L (22-29); Chloride 107 mmol/L (98-107); Globulin 3.1 g/dL (2.4-3.5); Glucose 79 mg/dL (70-105); Potassium 3.9 mmol/L (3.5-5.1); Protein, Total 6.4 g/dL (6.0-8.3); Sodium 142 mmol/L (136-145)
[2020-12-07] MEDS ORDERED: Ketorolac Tromethamine 30 MG/ML VIAL ONE (14:13)
== END 2020-12-07 14:40 | disposition home or self-care (01) ==
LOC: ERS 11:31
DX: R53.1 Weakness (principal)
CPT/HCPCS: 80053; 85025; 96374; 96375; J1885; J2405

== ENCOUNTER 2022-09-07 12:44 | Outpatient (CLI) | payer BC, OTHER ==
[~2022-09-07 12:44] MED LIST changes: -Bupivacaine HCl 0.25%/Epi 0.0005/PF 10 ML VIAL FS ONE; -Lidocaine 2% PF 5 ML VIAL ONE; +Magnevist 469MG/ML 20 ML VIAL ONE; -ePHEDrine 50 MG/ML VIAL ONE
== END 2022-09-07 12:45 | disposition home or self-care (01) ==
LOC: MRI 12:44
PROVIDERS: ATTEND Nurse Practitioner Family
DX: G43.809 Other migraine, not intractable, without status migrainosus (principal); I49.8 Other specified cardiac arrhythmias; L29.9 Pruritus, unspecified; D68.00 Von Willebrand disease, unspecified; D72.828 Other elevated white blood cell count; R76.8 Other specified abnormal immunological findings in serum; U09.9 Post COVID-19 condition, unspecified; Z97.5 Presence of (intrauterine) contraceptive device; Z86.718 Personal history of other venous thrombosis and embolism; Z87.19 Personal history of other diseases of the digestive system
CPT/HCPCS: 70553; A9579

== ENCOUNTER 2023-05-31 11:58 | Outpatient (CLI) | payer BC, OTHER | END 2023-05-31 11:59 | disposition home or self-care (01) | LOC: RAD 11:58 | PROVIDERS: ATTEND Nurse Practitioner Family | DX: M53.3 Sacrococcygeal disorders, not elsewhere classified (principal); K59.00 Constipation, unspecified | CPT/HCPCS: 72170; 74019 ==